=== PATIENT | male | born 1935 | race African-American/Black ===

== ENCOUNTER 2017-12-23 03:28 | Emergency (ER) | payer SELFPAY ==
[~2017-12-23] VITALS: Ht 175.3 cm; Wt 59.0 kg
[2017-12-23 04:19] LABS: BASOPHILS % 0.7 % (0.0-2.0); EOSINOPHILS % 5.5 % (0.0-5.0); HEMATOCRIT. 33.6 % (42.0-52.0); HEMOGLOBIN. 11.4 g/dL (14.0-18.0); LYMPHOCYTES % 20.9 % (20.0-50.0); MEAN CORPUSCULAR HEMOGLOBIN 34.5 pg (28.0-32.0); MEAN PLATELET VOLUME 7.1 fl (7.4-10.4); MONOCYTES % 12.8 % (2.0-8.0); NEUTROPHILS % 60.1 % (40.0-76.0); PLATELET 146 x1000/uL (130-400); RED BLOOD CELL COUNT 3.29 mill/uL (4.7-6.1); RED CELL DISTRIBUTION WIDTH 13.8 % (11.6-14.6)
[2017-12-23 04:25] LABS: CHLORIDE 104 mEq/L (98-107)
[2017-12-23] MEDS ORDERED: SODIUM CHLORIDE 0.9% 1,000 ML IV ONE (05:07)
[2017-12-23 06:54] LABS: CLARITY URINE CLOUDY (CLEAR); COLOR URINE RED (YELLOW); KETONES URINE NEGATIVE (NEGATIVE); LEUKOCYTE ESTERASE URINE 2+ (NEGATIVE); NITRITE URINE NEGATIVE (NEGATIVE); OCCULT BLOOD URINE 3+ (NEGATIVE); PROTEIN URINE NEGATIVE (NEGATIVE); SPECIFIC GRAVITY URINE 1.009 (1.005-1.030); UROBILINOGEN URINE 0.2 E.U./dL (0.2-1.0)
[2017-12-23] MEDS ORDERED: HYDROCODONE/ACETAMINOPHEN 5/325MG TABLET PO ONE (08:15)
[2017-12-23 08:44] VITALS: BP 136/91
== END 2017-12-23 08:51 | disposition home or self-care (01) ==
LOC: EDBD → ER 03:28
DX: T83.091A Other mechanical complication of indwelling urethral catheter, initial encounter (principal); R31.0 Gross hematuria; I48.91 Unspecified atrial fibrillation; H40.9 Unspecified glaucoma
CPT/HCPCS: 36415; 51702; 80053; 81003; 85025; 93005; 99285; J7030; A4315

== ENCOUNTER 2018-04-05 14:23 | Emergency (ER) | payer OTHER, MEDICARE ==
[~2018-04-05] VITALS: Ht 175.3 cm; Wt 66.0 kg
[2018-04-05 18:01] VITALS: BP 133/63
== END 2018-04-05 18:04 | disposition home or self-care (01) ==
LOC: ER 14:23
DX: S81.812D Laceration without foreign body, left lower leg, subsequent encounter (principal); I48.91 Unspecified atrial fibrillation; X58.XXXD Exposure to other specified factors, subsequent encounter
CPT/HCPCS: 99283

== ENCOUNTER 2018-10-02 08:31 | Emergency (ER) | payer OTHER ==
[~2018-10-02] VITALS: Ht 170.2 cm; Wt 66.0 kg
[2018-10-02] MEDS ORDERED: APIX5TAB PO (08:44)
[2018-10-02 10:35] LABS: BASOPHILS % 0.6 % (0.0-2.0); EOSINOPHILS % 4.6 % (0.0-5.0); HEMATOCRIT. 30.2 % (42.0-52.0); HEMOGLOBIN. 10.1 g/dL (14.0-18.0); LYMPHOCYTES % 29.4 % (20.0-50.0); MEAN CORPUSCULAR HEMOGLOBIN 29.8 pg (28.0-32.0); MEAN CORPUSCULAR VOLUME 89.4 fL (80.0-94.0); MEAN PLATELET VOLUME 7.7 fl (7.4-10.4); MONOCYTES % 14.8 % (2.0-8.0); NEUTROPHILS % 50.6 % (40.0-76.0); PLATELET 169 x1000/uL (130-400); RED BLOOD CELL COUNT 3.38 mill/uL (4.7-6.1); RED CELL DISTRIBUTION WIDTH 17.8 % (11.6-14.6)
[2018-10-02 10:36] LABS: CHLORIDE 109 mEq/L (98-107)
[2018-10-02 10:42] LABS: INR 1.4; PROTHROMBIN TIME 13.9 sec (9.6-11.0)
[2018-10-02 13:30] VITALS: BP 146/46
== END 2018-10-02 13:10 | disposition home or self-care (01) ==
LOC: ER 08:31
DX: I83.891 Varicose veins of right lower extremity with other complications (principal); R42 Dizziness and giddiness; I48.91 Unspecified atrial fibrillation; H54.8 Legal blindness, as defined in USA
CPT/HCPCS: 36415; 71045; 83880; 84484; 93005; 99284